=== PATIENT | female | born 1965 | race Caucasian/White ===

== ENCOUNTER 2016-09-28 07:52 | Emergency (ER) | payer OTHER ==
[2016-09-28 08:13] VITALS: RESP 18; TEMP 99.3
--- NOTE | 2016-09-28 08:26 | UCPHY ---
H & P Patient Type: Established Chief Complaint Nursing Narrative: C/o body aches, productive cough with yellow mucus, and fever (unsure how high) x 2 days. Time Seen by Provider: 09/28/16 08:04 HPI/ROS: Chief Complaint: Fevers, chills, cough, body aches HPI: 51-year-old patient presenting with 3 days of fevers, chills, dry nonproductive cough, body aches. Has not taken her temperature at home. Has been taken Tylenol without relief. Patient is feeling very fatigued. There domestic partner has similar symptoms that began within a day. No nausea or vomiting. No abdominal pain. No lightheadedness or fainting. ROS: 10 point Review of Systems is negative except as noted in the HPI. PMH: None Medications: None Allergies: No known drug allergies Social History: No smoking, no alcohol, no recreational drug use Family History: non-contributory Physical Exam: Gen: Awake, Alert, No Distress, afebrile HEENT: Nose: no rhinorrhea Eyes: PERRLA, EOMI Mouth: Moist mucosa Neck: Supple, no JVD Chest: nontender, mild diffuse expiratory wheeze with forced expiration, no focal rales or rhonchi Heart: S1, S2 normal, no murmur Abd: Soft, non-tender, no guarding Back: no CVA tenderness, no midline tenderness Ext: no edema, non-tender Skin: no rash Neuro: CN II-XII intact, Sensation grossly intact, Strength 5/5 in bilateral upper and lower extremities - Personal History LMP (Females 10-55): Post Menopausal Current Tetanus/Diphtheria Vaccine: Unsure Current Tetanus Diphtheria and Acellular Pertussis (TDAP): Unsure - Medical/Surgical History Hx Asthma: No Hx Chronic Respiratory Disease: No Hx Diabetes: No Hx Cardiac Disease: No Hx Renal Disease: No Hx Cirrhosis: No Hx Alcoholism: No Hx HIV/AIDS: No Hx Splenectomy or Spleen Trauma: No Other PMH: left leg tibia fx with surgery - Family History Significant Family History: No pertinent family hx - Social History Smoking Status: Never smoked Constitutional: Initial Vital Signs Temperature (C) 37.4 C 09/28/16 08:11 Heart Rate 97 09/28/16 08:11 Respiratory Rate 18 09/28/16 08:11 Blood Pressure 149/98 H 09/28/16 08:11 O2 Sat (%) 95 09/28/16 08:11 O2 Delivery Mode Room Air Allergies/Adverse Reactions: No Known Allergies Allergy (Verified 09/28/16 08:13) Home Medications: Medication Instructions Recorded Albuterol [Proventil Inhaler HFA 1 - 2 puffs IH Q4H PRN #1 mdi 09/28/16 (*)] Inhaler, Assist Devices [Space 1 each MC Q4H PRN #1 spacer 09/28/16 Chamber Plus] Medical Decision Making ED Course/Re-evaluation: Patient with symptoms of a upper respiratory virus and bronchitis. Afebrile here. No focal rales or rhonchi. Symptoms present for greater than 48 hours. Will treat with bronchodilators, alternate acetaminophen and ibuprofen and follow up primary care physician in 3-4 days if symptoms are not improving. Departure - Departure Disposition: Home, Routine, Self-Care Clinical Impression: Bronchitis, Viral upper respiratory illness Condition: Good Instructions: Acute Bronchitis (ED), Wheezing (ED), Viral Syndrome (ED) Additional Instructions: May alternate ibuprofen with acetaminophen every 4 hours for fevers, chills, aches, pains. You may use your inhaler 2 puffs every 4 hours as needed for wheeze. Always use a spacer use your inhaler. Follow up with primary care physician in 3-4 days if symptoms are not improving. Return emergency depart for increasing shortness of breath, lightheadedness or fainting, uncontrolled fevers, or any other concerns. Referrals: Tish Weaver MD [Medical Doctor] - As per Instructions Prescriptions: Albuterol [Proventil Inhaler HFA (*)] 1 - 2 puffs IH Q4H PRN #1 mdi PRN Reason: Wheezing Inhaler, Assist Devices [Space Chamber Plus] 1 each MC Q4H PRN #1 spacer PRN Reason: Wheezing - PQRS PQRS Measurement: NA
[2016-09-28 08:47] VITALS: BP 148/99; PULSE 102; O2SAT 94
== END 2016-09-28 08:42 | disposition home or self-care (01) ==
LOC: CED 07:52
DX: J20.9 Acute bronchitis, unspecified (principal); B34.9 Viral infection, unspecified
CPT/HCPCS: 99214-PO; G0463-PO